=== PATIENT | male | born 1940 | race Caucasian/White ===

== ENCOUNTER 2022-07-04 10:16 | Emergency (ER) | payer MEDICARE ==
[~2022-07-04] VITALS: Ht 167.6 cm; Wt 61.2 kg
[2022-07-04 10:32] VITALS: BP 145/101
--- NOTE | 2022-07-04 10:55 | NUR ---
Patient discharged to home in stable condition. Written and verbal after care instructions given. Patient verbalizes understanding of instruction.
== END 2022-07-04 10:56 | disposition home or self-care (01) ==
LOC: ER 10:22 → EDBD 10:22 → ER 10:56
DX: L81.9 Disorder of pigmentation, unspecified (principal); I10 Essential (primary) hypertension